=== PATIENT | female | born 2005 | race Caucasian/White ===

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

== ENCOUNTER 2024-05-28 07:24 | Emergency (ER) | payer BC, MEDICAID, SELFPAY ==
[2024-05-28 07:50] VITALS: BP 116/85; PULSE 95; RESP 18; TEMP 36.7; O2SAT 99
--- NOTE | 2024-05-28 08:14 | W.ED.EAR ---
HPI - Ear Problem General: Chief complaint: Ear Stated complaint: Left ear has a bug in it Time Seen by Provider: 05/28/24 07:49 History of Present Illness: 18-year-old female presents to the emergency room with complaint of bug in her left ear. She noticed it overnight. Its become very irritating. No drainage from the ear Related Data Previous Rx's Medication Instructions Recorded erythromycin 5 mg/gram (0.5 %) eye 0.5 inch ophthalmic (eye) TID 7 06/28/22 ointment (3.5 gram tube) days #3.5 grams xtunpijx-qkienoxmn-ivchdnoc 3.5 5 drp ophthalmic (eye) Q6H 5 days 05/28/24 mg/mL-10,000 unit/mL-0.1% eye drops #5 mL Allergies Allergy/AdvReac Type Severity Reaction Status Date / Time Penicillins AdvReac flu like Verified 04/08/23 20:52 symptoms PFSH ED PFSH: Medical History No pertinent past medical history Surgical History No pertinent past surgical history Social History Smoking and tobacco/nicotine status: never used tobacco/nicotine Second hand smoke exposure: No Alcohol intake: never Substance/Drug Use: never Adopted: No Current gender identity: Female Special kenny needs: No Physical Exam HENMT: OTHER: Direct visualization with otoscope there is wax and what appears to be portions of an insect. This was removed with cerumen loop initially large amount of wax removed and then the insect grasped by the wing gently removed intact from the ear canal. Patient tolerated well there is a minor abrasion to the anterior wall of the external auditory canal. No signs of infection tenet TM is intact after removal of the foreign body Procedures FB Removal Ear Location: ear canal (L) Foreign Body Suspected: insect TM intact pre-procedure: yes Foreign Body Removed: yes Foreign Body Removal Technique: instrumentation Tympanic Membrane Intact Post Procedure: Yes Patient Tolerated Procedure: well Complications: none Course Vital Signs: Vital signs: Vital Signs Temperature 98.1 F 05/28/24 07:50 Pulse Rate 95 05/28/24 07:50 Respiratory Rate 18 05/28/24 07:50 Blood Pressure 116/85 05/28/24 07:50 Pulse Oximetry 99 05/28/24 07:50 Oxygen Delivery Me thod Room Air 05/28/24 07:50 MDM - Ear Medical Decision Making Bug removed under direct visualization with alligator forceps. Slight irritation to the anterior portion of the extra auditory canal but TM is intact. All small amount of cerumen was removed as well. Discharge patient home Corticosporin ophthalmic drops (these are much cheaper and easier to obtain) 5 drops in the left ear 4 times a day for 5 days follow-up with primary care if not improving No radiology studies performed this visit Discharge Plan Discharge Patient Disposition: Home Clinical Impression: Acute foreign body of left ear canal Condition: Stable Prescriptions: New neomycin-polymyxin B-dexameth 3.5mg/mL-10,000 unit/mL-0.1 % drops,suspension 5 drp ophthalmic (eye) Q6H 5 Days Qty: 5 0RF No Action erythromycin 5 mg/gram (0.5 %) ointment 0.5 inch ophthalmic (eye) TID 7 Days Qty: 3.5 0RF Discharge Orders: Discharge ED (Routine); Ordered 05/28/24 Ordered By: Saleem Barrios Referrals: Romina Bonilla FNP [Primary Care Provider] - Discharge Diet: Usual diet Discharge Activity: Resume usual activity Patient Instructions: Opioid Safety, Pain Management Activity Restrictions/Additional Instructions: Thank you for choosing [facility] for your healthcare needs today. It is very important that you follow up as instructed or that you return to the Emergency Department should you have concerns or if your condition changes or worsens in any way. You were seen in the emergency room for foreign body in your left ear. Foreign body was removed under direct visualization the ear canal and the eardrum do not have significant injury. Recommend a short course of eardrops 5 drops 4 times a day for 5 days. 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
== END 2024-05-28 08:16 | disposition home or self-care (01) ==
PROVIDERS: Emergency Provider Family Medicine; PCP Nurse Practitioner Family
DX: T16.2XXA Foreign body in left ear, initial encounter (principal); W44.F4XA Insect entering into or through a natural orifice, initial encounter
CPT/HCPCS: 99283

== ENCOUNTER 2024-06-21 10:25 | Emergency (ER) | payer BC, MEDICAID, SELFPAY ==
[2024-06-21 10:42] VITALS: BP 119/84; PULSE 94; RESP 14; TEMP 36.8; O2SAT 99; BMI 19.2
--- NOTE | 2024-06-21 10:53 | W.ED.ANIMALB ---
HPI - Animal Bite General: Chief Complaint: Animal Bite Stated Complaint: cat bite on hands Time Seen by Provider: 06/21/24 10:40 Source: patient Mode of arrival: ambulatory Limitations: no limitations History of Present Illness: 18-year-old female states she is bitten by her cat yesterday states she had to catch her fighting and try to make up and one of them bit her. She is bite on the left thumb and right hand that she has had some swelling to her left thumb minimal pain denies any fevers she is up-to-date on her tetanus she denies any draining. Associated symptoms: Deny chills, fever(s) or headache(s) Related Data Previous Rx's Medication Instructions Recorded erythromycin 5 mg/gram (0.5 %) eye 0.5 inch ophthalmic (eye) TID 7 06/28/22 ointment (3.5 gram tube) days #3.5 grams amoxicillin 500 mg-potassium 1 tab PO BID #14 tabs 06/21/24 clavulanate 125 mg tablet (Augmentin) Allergies Allergy/AdvReac Type Severity Reaction Status Date / Time Penicillins AdvReac flu like Verified 04/08/23 20:52 symptoms Review of Systems Const: Denies: fever(s), chills, body aches or change in appetite ENMT: Denies: throat pain or dental pain Card: Denies: chest pain Resp: Denies: dyspnea GI: Denies: abdominal pain, nausea, vomiting or diarrhea Musc: Reports: extremity pain and extremity swelling; Denies: neck pain or back pain Skin/Breast: Reports: erythema; Denies: rash Neuro: Denies: headache(s) PFS ED PFSH: Medical History No pertinent past medical history Surgical History No pertinent past surgical history Social History Smoking and tobacco/nicotine status: never used tobacco/nicotine Second hand smoke exposure: No Alcohol intake: never Substance/Drug Use: never Adopted: No Current gender identity: Female Special kenny needs: No Physical Exam Const: COMMON NORMALS: no acute distress, patient oriented x3 and healthy appearing HENMT: COMMON NORMALS: normocephalic and atraumatic HEAD & SCALP: normocephalic and atraumatic Eye: COMMON NORMALS: conjunctivae normal CONJUNCTIVA: Yes conjunctivae normal Neck/C-Spine: COMMON NORMALS: full ROM and supple Chest: COMMONS NORMALS: normal inspection of the chest Resp: COMMON NORMALS: normal respiratory effort Cardio: COMMON NORMALS: regular rate, regular rhythm and No murmurs present (Cardio) RATE: regular rate RHYTHM: regular rhythm Extremity: NARRATIVE EXTREMITY EXAM: Puncture wound noted left thumb some slight erythema no signs of flexor tenosynovitis no tenderness she has full range of motion Neuro: COMMON NORMALS: patient oriented x3, moves all extremities and no focal motor deficits Psych: COMMON NORMALS: mental status grossly normal, Normal thought process present and cooperative THOUGHT PROCESS: Normal thought process present Skin: COMMON NORMALS: no rashes or lesions noted and no wounds GENERAL SKIN EXAM: no rashes or lesions noted Course Vital Signs: Vital signs: Vital Signs Temperature 98.3 F 06/21/24 10:42 Pulse Rate 94 06/21/24 10:42 Respiratory Rate 14 06/21/24 10:42 Blood Pressure 119/84 06/21/24 10:42 Pulse Oximetry 99 06/21/24 10:42 Oxygen Delivery Me thod Room Air 06/21/24 10:42 MDM - Animal Bite Medical Decision Making Patient presents with a cat bite with cellulitis no signs of any tenosynovitis did arrive antibiotics here we will prescribe antibiotics for home she is stable for discharge follow-up with PCP return if worsening. No radiology studies performed this visit Discharge Plan Discharge Patient Disposition: Home Clinical Impression: Cat bite Condition: Stable Prescriptions: New amoxicillin-pot clavulanate [Augmentin] 500-125 mg tablet 1 tab PO BID Qty: 14 0RF No Action erythromycin 5 mg/gram (0.5 %) ointment 0.5 inch ophthalmic (eye) TID 7 Days Qty: 3.5 0RF Discharge Orders: Discharge ED (Routine); Ordered 06/21/24 Ordered By: Cassy Santana Referrals: Romina Bonilla FNP [Primary Care Provider] - 4-7 days Discharge Diet: Advance as tolerated Discharge Activity: Resume usual activity Patient Instructions: Animal Bite (ED), Cellulitis (ED) Activity Restrictions/Additional Instructions: return if fever or worsening swelling 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
[2024-06-21] MEDS: VANCOMYCIN ADD-Vantage 1,000 MG in 0.9% NaCl ADD-Vantage 250 ML 250 MG IV (11:25)
[2024-06-21] MEDS: diphenhydrAMINE 50 mg/mL SDV 1mL IVP (11:47)
--- NOTE | 2024-06-21 12:05 | PC.NURSE ---
this nurse was notified by pts family that pt was feeling itchy all over. this nurse checked on pt and stopped the vancomycin infusion. this nurse notified Dr. Santana of the pts itching and redness of face. iv benadryl was ordered and given to pt. vancomycin infusion was slowed per providers orders.
[2024-06-21 13:05] VITALS: BP 122/78; PULSE 102; RESP 16; O2SAT 97
== END 2024-06-21 13:06 | disposition home or self-care (01) ==
PROVIDERS: Emergency Provider Emergency Medicine; PCP Nurse Practitioner Family
DX: L03.113 Cellulitis of right upper limb (principal); W55.01XA Bitten by cat, initial encounter
CPT/HCPCS: 96365; 96375; 99284; J1200; J3370; J7050